=== PATIENT | male | born 1980 | race Caucasian/White ===

== ENCOUNTER → 2018-09-19 | Outpatient (CLI) | payer BC ==
--- NOTE | 2018-09-19 16:19 | Diagnostic Imaging Report ---
INDICATION: Chronic back pain progressively more severe, bilateral feet pain, garcia pain. No priors. FINDINGS: The thoracic spinal cord has a normal volume and normal morphology and a normal signal intensity. The thoracic vertebral body heights are well maintained. There is mild spondylosis with predominantly anteriorly oriented osteophyte disc material. CSF circumscribes the cord at each thoracic vertebral body and disc space levels. No significant canal stenosis and patency of the neuroforamina bilaterally is preserved throughout. There is no paravertebral mass, hemorrhage or fluid collection. Marrow signal intensity normal. The facet relationships normal. The alignment is anatomic. IMPRESSION: Mild degenerative disc bulges and endplate osteophytes are predominantly directed anteriorly. There is no resultant canal, foraminal or recess stenosis. Normal alignment. Normal cord. No acute abnormality. Dictated by: Dictated on workstation # [id number]
--- NOTE | 2018-09-19 19:26 | Diagnostic Imaging Report ---
PROCEDURE: MRI lumbar spine. TECHNIQUE: Multiplanar, multisequence MRI of the lumbar spine was performed without contrast. INDICATION: Worsening chronic back pain. COMPARISON: None. FINDINGS: Anatomic, the marrow signal intensity normal. No focal disc herniation. The lumbar spinal canal is widely patent at each vertebral body and disc space level. Neural foramen are widely patent. No lateral recess impingement. No paravertebral mass, hemorrhage or fluid collection. No intrathecal or epidural disease. IMPRESSION: Normal MRI of the lumbar spine. Dictated by: Dictated on workstation # [id number]
== END ==
LOC: RAD 10:55
PROVIDERS: ATTEND Internal Medicine
DX: M51.24 Other intervertebral disc displacement, thoracic region (principal); M25.78 Osteophyte, vertebrae
CPT/HCPCS: 72146; 72148

== ENCOUNTER 2019-02-20 11:56 | Day surgery (SDC) | payer BC, OTHER ==
[~2019-02-20] VITALS: Ht 180.3 cm; Wt 93.0 kg
[2019-02-20] MEDS ORDERED: ATORVASTATIN 40 MG TABLET (12:09)
[2019-02-20] MEDS ORDERED: ALPRAZOLAM 1 MG TABLET (12:09)
[2019-02-20] MEDS ORDERED: DEXTROAMP AMPHETAMIN (12:09)
[2019-02-20] MEDS ORDERED: ONDANSETRON 4 MG/2 ML (SDV) Z0FRAN IVP ONE (12:15)
[2019-02-20] MEDS ORDERED: fentaNYL INJECTION 100 MCG/2 ML AMP IVP ONE ×2 (12:15→13:15)
[2019-02-20] MEDS ORDERED: NS IV 1000 ML 1,000 ML IV SCH (12:15)
--- NOTE | 2019-02-20 12:35 | ED Abdominal Pain ---
General Chief Complaint: Abdominal/GI Problems Stated Complaint: LOWER ABD PAIN Nursing Triage Note: PT AMB TO RM 10 WITH COMPLAINT OF LOW AND PAIN. STATES STARTED MONDAY AND HAS WORSENED. Sepsis Screen: No Definite Risk Source of Information: Patient Exam Limitations: No Limitations History of Present Illness Date Seen by Provider: Feb 20, 2019 Time Seen by Provider: 12:00 Initial Comments 38-year-old male who presents to the emergency room with complaints of right lower quadrant abdominal pain that radiates to his periumbilical area for the past 4 days. He reports that it has progressively gotten worse and he started to run a low-grade fever. He also complains of nausea and vomiting. Denies diarrhea or constipation. Timing/Duration: 3-4 Days Severity/Quality: Sharp, Stabbing Location: RLQ Radiation: Periumbilical Activities at Onset: None Associated Symptoms: Fever/Chills, Nausea/Vomiting; No Swelling/Mass in Abdomen Allergies and Home Medications Allergies Coded Allergies: No Known Drug Allergies (Unverified , 02/20/19) Home Medications Alprazolam 1 Mg Tablet, 0.5-1 MG PO HS, (Reported) Atorvastatin Calcium 40 Mg Tablet, 40 MG PO HS, (Reported) Dextroamphetamine/Amphetamine 30 Mg Tablet, 15-30 MG PO DAILY PRN for ATTENTION, (Reported) Ibuprofen 200 Mg Tablet, 800 MG PO TID PRN for PAIN-MILD, (Reported) Tramadol HCl 50 Mg Tablet, 50 MG PO Q6H PRN for PAIN-MODERATE, (Reported) Patient Home Medication List Home Medication List Reviewed: Yes Review of Systems Review of Systems Constitutional: see HPI, chills, fever Gastrointestinal: See HPI, Abdominal Pain; Denies Constipated, Denies Diarrhea ; Nausea, Vomiting Genitourinary: No Symptoms Reported All Other Systems Reviewed Negative Unless Noted: Yes Past Xhlvfrl-Rysblf-Nmfgzs Hx Past Med/Social Hx: Reviewed Nursing Past Med/Soc Hx Patient Social History Alcohol Use: Occasionally Uses Recreational Drug Use: No Smoking Status: Never a Smoker Recent Foreign Travel: No Contact w/Someone Who Travel: No Recent Infectious Disease Expo: No Recent Hopitalizations: No Immunizations Up To Date Tetanus Booster (TDap): Unknown PED Vaccines UTD: Yes Seasonal Allergies Seasonal Allergies: No Past Medical History Surgeries: Yes Respiratory: No Cardiac: Yes High Cholesterol Neurological: No Genitourinary: No Gastrointestinal: No Musculoskeletal: No Endocrine: No HEENT: No Cancer: No Psychosocial: Yes Anxiety Integumentary: No Family Medical History Reviewed Nursing Family Hx Physical Exam Vital Signs Vital Signs - First Documented 02/20/19 12:02 Temp 99.7 Pulse 77 Resp 20 B/P (MAP) 152/103 (119) Pulse Ox 99 O2 Delivery Room Air Capillary Refill : Less Than 3 Seconds Height/Weight/BMI Height: 5'11.00" Weight: 205lbs. oz. 92.644904gr; BMI Method:Stated General Appearance: WD/WN, no apparent distress Respiratory: chest non-tender, lungs clear, normal breath sounds, no respiratory distress, no accessory muscle use Cardiovascular: normal peripheral pulses, regular rate, rhythm, no edema, no gallop, no JVD, no murmur Gastrointestinal: normal bowel sounds, soft, no organomegaly, no pulsatile mass , tenderness (right lower quadrant tenderness) Extremities: normal capillary refill Neurologic/Psychiatric: alert, normal mood/affect, oriented x 3 Skin: normal color, warm/dry Progress/Results/Core Measures Results/Orders Lab Results Laboratory Tests Test 02/20/19 12:25 Range/Units White Blood Count 14.2 H 4.3-11.0 10^3/uL Red Blood Count 5.02 4.35-5.85 10^6/uL Hemoglobin 15.5 13.3-17.7 G/DL Hematocrit 44 40-54 % Mean Corpuscular Volume 88 80-99 FL Mean Corpuscular Hemoglobin 31 25-34 PG Mean Corpuscular Hemoglobin Concent 35 32-36 G/DL Red Cell Distribution Width 12.8 10.0-14.5 % Platelet Count 213 130-400 10^3/uL Mean Platelet Volume 9.8 7.4-10.4 FL Neutrophils (%) (Auto) 82 H 42-75 % Lymphocytes (%) (Auto) 7 L 12-44 % Monocytes (%) (Auto) 11 0-12 % Eosinophils (%) (Auto) 0 0-10 % Basophils (%) (Auto) 0 0-10 % Neutrophils # (Auto) 11.6 H 1.8-7.8 X 10^3 Lymphocytes # (Auto) 0.9 L 1.0-4.0 X 10^3 Monocytes # (Auto) 1.6 H 0.0-1.0 X 10^3 Eosinophils # (Auto) 0.0 0.0-0.3 10^3/uL Basophils # (Auto) 0.0 0.0-0.1 10^3/uL Neutrophils % (Manual) 79 % Lymphocytes % (Manual) 6 % Monocytes % (Manual) 8 % Eosinophils % (Manual) 1 % Basophils % (Manual) 0 % Band Neutrophils 6 % Blood Morphology Comment NORMAL Urine Color YELLOW Urine Clarity CLEAR Urine pH 7 5-9 Urine Specific [place] 1.010 L 1.016-1.022 Urine Protein 1+ H NEGATIVE Urine Glucose (UA) NEGATIVE NEGATIVE Urine Ketones 3+ H NEGATIVE Urine Nitrite NEGATIVE NEGATIVE Urine Bilirubin NEGATIVE NEGATIVE Urine Urobilinogen NORMAL NORMAL MG/DL Urine Leukocyte Esterase NEGATIVE NEGATIVE Urine RBC (Auto) NEGATIVE NEGATIVE Urine RBC NONE /HPF Urine WBC RARE /HPF Urine Squamous Epithelial Cells 0-2 /HPF Urine Crystals NONE /LPF Urine Bacteria NEGATIVE /HPF Urine Casts NONE /LPF Urine Mucus SMALL H /LPF Urine Culture Indicated NO Sodium Level 139 135-145 MMOL/L Potassium Level 3.9 3.6-5.0 MMOL/L Chloride Level 102 98-107 MMOL/L Carbon Dioxide Level 23 21-32 MMOL/L Anion Gap 14 5-14 MMOL/L Blood Urea Nitrogen 11 7-18 MG/DL Creatinine 1.07 0.60-1.30 MG/DL Estimat Glomerular Filtration Rate > 60 BUN/Creatinine Ratio 10 Glucose Level 107 H 70-105 MG/DL Calcium Level 9.5 8.5-10.1 MG/DL Corrected Calcium 8.5-10.1 MG/DL Total Bilirubin 1.3 H 0.1-1.0 MG/DL Aspartate Amino Transf (AST/SGOT) 18 5-34 U/L Alanine Aminotransferase (ALT/SGPT) 25 0-55 U/L Alkaline Phosphatase 67 40-136 U/L Total Protein 7.6 6.4-8.2 GM/DL Albumin 4.6 H 3.2-4.5 GM/DL Amylase Level 36 25-125 U/L Lipase 5 L 8-78 U/L My Orders Orders - HUMZA HILL Cbc With Automated Diff (02/20/19 12:07) Comprehensive Metabolic Panel (02/20/19 12:07) Ct Abd/Pelv W (Appendicitis) (02/20/19 12:07) Saline Lock/Iv-Start (02/20/19 12:07) Amylase (02/20/19 12:07) Lipase (02/20/19 12:07) Ua Culture If Indicated (02/20/19 12:07) Ns Iv 1000 Ml (Sodium Chloride 0.9%) (02/20/19 12:15) Fentanyl Injection (Sublimaze Injection (02/20/19 12:15) Ondansetron Injection (Zofran Injectio (02/20/19 12:15) Manual Differential (02/20/19 12:25) Fentanyl Injection (Sublimaze Injection (02/20/19 13:15) Medications Given in ED Vital Signs/I&O 02/20/19 12:02 Temp 99.7 Pulse 77 Resp 20 B/P (MAP) 152/103 (119) Pulse Ox 99 O2 Delivery Room Air Blood Pressure Mean: 119 Progress Progress Note : Time: 12:34 Progress Note The patient's pain has improved after fentanyl administration. He is going to CT scan at this time. 1300: Radiologist discussed CT images with myself and informed me that patient is having acute appendicitis. Dr. LEWIS was paged at this time.1310: I have discussed the case with Dr. Lewis and he agrees to accept the patient to his services. Given that the last time the patient had anything to eat was 2 hours ago he recommends putting the patient on clear liquid diet until midnight, IV antibiotics (Cipro Flagyl) and operating tomorrow morning. The patient agrees with plan of care and plans for admission. Diagnostic Imaging Diagonstic Imaging: CT Plain Films/CT/US/NM/MRI: abdomen, pelvis Comments NAME: MIRIAN CHRISTENSEN [facility] REC#: [id number] PT STATUS: ADM Fang : 1980 PHYSICIAN: HUMZA HILL ADMIT DATE: 02/20/19/4TH Signed Date of Exam: 02/20/19 CT ABD/PELV W (APPENDICITIS) PROCEDURE: CT abdomen and pelvis with contrast, rule out appendicitis. TECHNIQUE: Multiple contiguous axial images were obtained through the abdomen and pelvis after the administration of intravenous contrast. INDICATION: Right lower quadrant pain, fever, and nausea. FINDINGS: Findings are consistent with acute appendicitis. The appendix is dilated and thickwalled with maximal outer bcpb-ln-prgui wall transverse diameter of 1.5 cm. There is periappendiceal edema. There are multiple intraluminal appendicoliths including a large spherical stone at the base of the appendix measuring a diameter of 1 cm. There is no extraluminal air or findings of transmural perforation and there is no abscess or resultant bowel obstruction. Unobstructed urinary tracts are normal. The liver, gallbladder, spleen, adrenals, and pancreas are all negative. There is patent left-sided processus vaginalis noted with fluid distention along the left spermatic cord. No herniated viscus. IMPRESSION: Findings of acute appendicitis without features of obstruction, perforation, or abscess. No other significant finding. Results phoned to the ER physician. Dictated by: Dictated on workstation # [id number] Dict: 02/20/19 1255 Trans: 02/20/19 1342 Interpreted by: ANIBAL HERNÁNDEZ Electronically signed by: ANIBAL HERNÁNDEZ 02/20/19 1342 Reviewed: Reviewed by Me Departure Communication (Admissions) Time/Spoke to Admitting Phy: 13:10 Dr. LEWIS Impression Primary Impression: Appendicitis Qualified Codes: K35.80 - Unspecified acute appendicitis Disposition: ADMITTED INPATIENT Condition: Stable/Unchanged Admissions Decision to Admit Reason: Admit from ER (General) Decision to Admit/Date: Feb 20, 2019 Time/Decision to Admit Time: 13:15 Departure-Patient Inst. Referrals: DEONTE CAMEJO DO (PCP/Family) Primary Care Physician HUMZA HILL Feb 20, 2019 12:35
[2019-02-20 12:37] LABS: BILIRUBIN,URINE NEGATIVE (NEGATIVE); CLARITY,URINE CLEAR; COLOR,URINE YELLOW; GLUCOSE, URINE (UA) NEGATIVE (NEGATIVE); KETONES,URINE 3+ (NEGATIVE); LEUKOCYTE ESTERASE ,URINE NEGATIVE (NEGATIVE); NITRITE,URINE NEGATIVE (NEGATIVE); PH,URINE 7 (5-9); PROTEIN,URINE 1+ (NEGATIVE); UROBILINOGEN,URINE NORMAL (NORMAL)
[2019-02-20 12:41] LABS: BASOPHILS % (AUTO) 0 % (0-10); EOSINOPHILS % (AUTO) 0 % (0-10); HEMATOCRIT 44 % (40-54); HEMOGLOBIN 15.5 G/DL (13.3-17.7); LYMPHOCYTES # (AUTO) 0.9 X 10^3 (1.0-4.0); LYMPHOCYTES % (AUTO) 7 % (12-44); MEAN CORPUSCULAR HEMOGLOBIN 31 PG (25-34); MEAN CORPUSCULAR HGB CONC 35 G/DL (32-36); MEAN CORPUSCULAR VOLUME 88 FL (80-99); MEAN PLATELET VOLUME 9.8 FL (7.4-10.4); MONOCYTES # (AUTO) 1.6 X 10^3 (0.0-1.0); MONOCYTES % (AUTO) 11 % (0-12); NEUTROPHILS # (AUTO) 11.6 X 10^3 (1.8-7.8); NEUTROPHILS % (AUTO) 82 % (42-75); PLATELET COUNT 213 10^3/uL (130-400); RED CELL DISTRIBUTION WIDTH 12.8 % (10.0-14.5); WHITE BLOOD COUNT 14.2 10^3/uL (4.3-11.0)
[2019-02-20 12:57] LABS: BACTERIA,URINE NEGATIVE /HPF; SQUAMOUS EPITHELIAL CELL,UR 0-2 /HPF; WBC,URINE RARE /HPF
[2019-02-20 13:00] LABS: ALANINE AMINOTRANSFERASE 25 U/L (0-55); ALBUMIN 4.6 GM/DL (3.2-4.5); ALKALINE PHOSPHATASE 67 U/L (40-136); AMYLASE 36 U/L (25-125); BILIRUBIN,TOTAL 1.3 MG/DL (0.1-1.0); BUN/CREATININE RATIO 10; CALCIUM 9.5 MG/DL (8.5-10.1); CARBON DIOXIDE 23 MMOL/L (21-32); CHLORIDE 102 MMOL/L (98-107); CREATININE SERUM 1.07 MG/DL (0.60-1.30); GFR ESTIMATED > 60; GLUCOSE 107 MG/DL (70-105); LIPASE 5 U/L (8-78); POTASSIUM 3.9 MMOL/L (3.6-5.0); SODIUM 139 MMOL/L (135-145); TOTAL PROTEIN 7.6 GM/DL (6.4-8.2)
--- NOTE | 2019-02-20 13:05 | Diagnostic Imaging Report ---
PROCEDURE: CT abdomen and pelvis with contrast, rule out appendicitis. TECHNIQUE: Multiple contiguous axial images were obtained through the abdomen and pelvis after the administration of intravenous contrast. INDICATION: Right lower quadrant pain, fever, and nausea. FINDINGS: Findings are consistent with acute appendicitis. The appendix is dilated and thickwalled with maximal outer yljk-fa-gtcvm wall transverse diameter of 1.5 cm. There is periappendiceal edema. There are multiple intraluminal appendicoliths including a large spherical stone at the base of the appendix measuring a diameter of 1 cm. There is no extraluminal air or findings of transmural perforation and there is no abscess or resultant bowel obstruction. Unobstructed urinary tracts are normal. The liver, gallbladder, spleen, adrenals, and pancreas are all negative. There is patent left-sided processus vaginalis noted with fluid distention along the left spermatic cord. No herniated viscus. IMPRESSION: Findings of acute appendicitis without features of obstruction, perforation, or abscess. No other significant finding. Results phoned to the ER physician. Dictated by: Dictated on workstation # [id number]
[2019-02-20 13:13] LABS: NEUTROPHILS % (MANUAL) 79 %
[2019-02-20 13:14] LABS: BAND NEUTROPHILS 6 %; BASOPHILS % (MANUAL) 0 %; EOSINOPHILS % (MANUAL) 1 %; LYMPHOCYTES % (MANUAL) 6 %; MONOCYTES % (MANUAL) 8 %; RBC MORPH NORMAL
--- NOTE | 2019-02-20 14:00 | NUR ---
MIRIAN CHRISTENSEN admitted to room 417-1, with an admitting diagnosis of Appendicitis, on 02/20/[address] via cart, accompanied by staff, mom and sister.MIRIAN CHRISTENSEN introduced to surroundings, call light, bed controls, phone, TV, temperature control, lights, meal times, smoking policy, visitor policy, side rail policy, bathrooms and showers. Patient Rights given to patient in the handbook. MIRIAN CHRISTENSEN verbalizes understanding that [facility] is not responsible for the loss or damage to any personal effects or valuables that are kept in the patients posession during their hospitalization. The following Patient Care Plans were discussed with the pt: Discharge Planning. MIRIAN CHRISTENSEN verbalizes understanding of Interdisciplinary Patient Education. Patient and/or family were informed about the Rapid Response Team and its purpose.
[2019-02-20 14:08] VITALS: BP 160/80
[2019-02-20] MEDS ORDERED: ATOR40TA70 PO (14:26)
[2019-02-20] MEDS ORDERED: DEXT30TA12 PO (14:26)
[2019-02-20] MEDS ORDERED: ALPR1TAB7 PO (14:26)
[2019-02-20] MEDS ORDERED: TRAM50TA2 PO (14:28)
[2019-02-20] MEDS ORDERED: IBUP-30 PO (14:28)
[2019-02-20] MEDS ORDERED: HYDROcodone/APAP 5 MG/325 MG (LORTAB) TAB PO PRN (14:30)
[2019-02-20] MEDS ORDERED: CATHETER FLUSH 10 ML SYR IV PRN (14:30)
[2019-02-20] MEDS ORDERED: fentaNYL INJECTION 100 MCG/2 ML AMP IV PRN (14:30)
[2019-02-20] MEDS: CIPROFLOXACIN 400 MG/D5W 200 ML (PRE-MIX) IV SCH (14:55)
[2019-02-20] MEDS: metroNIDAZOLE 500MG/100ML IVPB 100 ML IV SCH ×2 (14:55→22:02)
--- NOTE | 2019-02-20 15:46 | Progress Note-Pre Operative ---
Pre-Operative Progress Note H&P Reviewed The H&P was reviewed, patient examined and no changes noted. Date Seen by Provider: Feb 20, 2019 Time Seen by Provider: 15:30 Date H&P Reviewed: Feb 20, 2019 Time H&P Reviewed: 15:30 Pre-Operative Diagnosis: acute appendicitis MAGUI LUGO MD Feb 20, 2019 15:46
[2019-02-20] MEDS ORDERED: FLU QUADRIvalent (5+ YOA) 2018-2019 (AFLURIA) 0.5 ML IM ONE (16:00)
--- NOTE | 2019-02-20 16:08 | HISTORY AND PHYSICAL ---
DATE OF SERVICE: 02/20/2019 ATTENDING PRIMARY CARE PHYSICIAN: Dr. Moreno. HISTORY OF PRESENT ILLNESS: The patient is a 38-year-old male who presented to the Emergency Department with pain in the right lower abdominal quadrant, which first started 4 days previous, more in the periumbilical region. He states that this progressively worsened and then did localize towards the right lower abdominal quadrant. He states that today he did develop a low grade fever. He also complains of nausea as well. He does not report any diarrhea nor constipation. He states that he has not had these symptoms before in the past. A CT scan was performed which did show dilatation with periappendiceal inflammation consistent with an acute appendicitis. PAST MEDICAL HISTORY: Hypercholesterolemia, anxiety. PAST SURGICAL HISTORY: None. ALLERGIES: No known drug allergies. MEDICATIONS: 1. Alprazolam 1 mg daily. 2. Atorvastatin 40 mg daily. 3. Adderall 30 mg p.r.n. 4. Tramadol 50 mg p.r.n. SOCIAL HISTORY: Negative smoke, social alcohol. FAMILY HISTORY: Noncontributory. REVIEW OF SYSTEMS: Well-nourished male, currently in no acute distress. He is not experiencing any shortness of breath or difficulty breathing. No chest pain, palpitations, diaphoresis. Intermittent episodes of nausea with pain in the right lower abdominal quadrant, which were started in the periumbilical region; however, localized more towards the right lower abdominal quadrant in the past day. No diarrhea or constipation. No red blood per rectum. No dark tarry stools. He states that he did have a mild fever this morning. No current recent inadvertent weight loss. All other review of systems is negative. PHYSICAL EXAMINATION: VITAL SIGNS: Temperature 99.7, pulse 77, respirations 20, blood pressure 152/103, pulse 99% on room air. CHEST: Clear. Good breath sounds bilaterally. HEART: Regular, no murmurs. HEENT: No scleral icterus. NECK: No cervical lymphadenopathy. EXTREMITIES: No lower extremity edema. Negative Homans sign. ABDOMEN: Soft, nondistended. There is pain in the right lower abdominal quadrant at McBurney's point. Voluntary guarding, no rebound. SKIN: Warm, dry. ASSESSMENT AND PLAN: A 38-year-old male with acute appendicitis. We will admit him, hydrate him, start IV antibiotics and proceed with a diagnostic laparoscopy as well as a laparoscopic appendectomy on this admission. Job ID: [id number] DocumentID: [id number] Dictated Date: 02/20/2019 15:46:01 Solid Surface Fabricator Date: 02/20/2019 16:07:54 Dictated By: MAGUI LUGO MD
[2019-02-20] MEDS ORDERED: LORazepam INJ 2 MG/ML (ATIVAN) VIAL IVP PRN (16:15)
[2019-02-20] MEDS ORDERED: PROMETHAZINE INJ 25 MG/ML (PHENERGAN) AMP IVP PRN (16:15)
[2019-02-20] MEDS ORDERED: ACETAMINOPHEN 500 MG TAB (TYLENOL) PO PRN (16:15)
[2019-02-20 16:29] VITALS: BP 137/80
[2019-02-20] MEDS ORDERED: ACETAMINOPHEN 325 MG TABLET PO PRN (16:30)
[2019-02-20] MEDS: IBUPROFEN 600 MG (MOTRIN) TAB PO PRN ×2 (16:52→22:58)
[2019-02-20] MEDS: HYDROcodone/APAP 7.5 MG/325 MG (LORTAB, LORCET PLUS) TABLET PO PRN ×2 (16:53→22:04)
[2019-02-20] MEDS: fentaNYL INJECTION 100 MCG/2 ML AMP IV PRN (16:54)
[2019-02-20] MEDS: LACTATED RINGERS 1,000 ML IV SCH (16:54)
[2019-02-20 19:29] VITALS: BP 109/64
[2019-02-20] MEDS: ONDANSETRON 4 MG/2 ML (SDV) Z0FRAN IV PRN (19:54)
[2019-02-20] MEDS: CATHETER FLUSH 10 ML SYR IV SCH (22:02)
[2019-02-21] VITALS: BP 114/79
[2019-02-21] MEDS: LACTATED RINGERS 1,000 ML IV SCH ×4 (02:56→22:18)
[2019-02-21] MEDS: CIPROFLOXACIN 400 MG/D5W 200 ML (PRE-MIX) IV SCH ×2 (02:56→14:09)
[2019-02-21 04:00] VITALS: BP 120/78
[2019-02-21] MEDS: fentaNYL INJECTION 100 MCG/2 ML AMP IV PRN ×2 (04:41→06:47)
[2019-02-21] MEDS: metroNIDAZOLE 500MG/100ML IVPB 100 ML IV SCH ×3 (05:48→22:15)
[2019-02-21] MEDS ORDERED: LACTATED RINGERS 1,000 ML IV PRN (06:00)
[2019-02-21 06:19] LABS: BASOPHILS % (AUTO) 0 % (0-10); EOSINOPHILS # (AUTO) 0.1 10^3/uL (0.0-0.3); EOSINOPHILS % (AUTO) 1 % (0-10); HEMATOCRIT 42 % (40-54); HEMOGLOBIN 14.5 G/DL (13.3-17.7); LYMPHOCYTES # (AUTO) 0.2 X 10^3 (1.0-4.0); LYMPHOCYTES % (AUTO) 2 % (12-44); MEAN CORPUSCULAR HEMOGLOBIN 30 PG (25-34); MEAN CORPUSCULAR HGB CONC 34 G/DL (32-36); MEAN CORPUSCULAR VOLUME 89 FL (80-99); MEAN PLATELET VOLUME 9.8 FL (7.4-10.4); MONOCYTES # (AUTO) 0.5 X 10^3 (0.0-1.0); MONOCYTES % (AUTO) 4 % (0-12); NEUTROPHILS # (AUTO) 10.1 X 10^3 (1.8-7.8); NEUTROPHILS % (AUTO) 93 % (42-75); PLATELET COUNT 165 10^3/uL (130-400); RED CELL DISTRIBUTION WIDTH 13.1 % (10.0-14.5); WHITE BLOOD COUNT 10.9 10^3/uL (4.3-11.0)
[2019-02-21 06:40] LABS: ALANINE AMINOTRANSFERASE 21 U/L (0-55); ALKALINE PHOSPHATASE 62 U/L (40-136); BILIRUBIN,TOTAL 1.6 MG/DL (0.1-1.0); BUN/CREATININE RATIO 9; CALCIUM 9.4 MG/DL (8.5-10.1); CARBON DIOXIDE 26 MMOL/L (21-32); CHLORIDE 105 MMOL/L (98-107); CREATININE SERUM 1.06 MG/DL (0.60-1.30); GFR ESTIMATED > 60; GLUCOSE 89 MG/DL (70-105); POTASSIUM 3.7 MMOL/L (3.6-5.0); SODIUM 139 MMOL/L (135-145); TOTAL PROTEIN 6.9 GM/DL (6.4-8.2)
--- NOTE | 2019-02-21 06:45 | NUR ---
INFORMED DR. LUGO THAT PATIENT WAS RUNNING 99.8 TEMP AND SHAKING AND UNCOMFORTABLE. RECEIVED ORDER TO GIVE MOTRIN PO. WILL CONTINUE TO MONITOR.
[2019-02-21] MEDS: IBUPROFEN 600 MG (MOTRIN) TAB PO PRN ×3 (06:48→19:51)
[2019-02-21] MEDS: ONDANSETRON 4 MG/2 ML (SDV) Z0FRAN IV PRN (06:48)
[2019-02-21] MEDS: CATHETER FLUSH 10 ML SYR IV SCH ×3 (06:48→22:16)
[2019-02-21] MEDS ORDERED: ONDANSETRON 4 MG/2 ML (SDV) Z0FRAN ONE (08:21)
[2019-02-21] MEDS ORDERED: GLYCOPYRROLATE 0.2 MG/ML (ROBINUL) 2 ML VIAL ONE ×3 (08:21→09:47)
[2019-02-21] MEDS ORDERED: NEOSTIGMINE 1 MG/ML 5 ML SYRINGE ONE ×3 (08:21→09:47)
[2019-02-21] MEDS ORDERED: LIDOCAINE PF 2% 5 ML (XYLOCAINE) VIAL ONE (08:21)
[2019-02-21] MEDS ORDERED: proPOfol 200 MG/20 ML (DIPRIVAN) VIAL IV ONE ×2 (08:21→09:05)
[2019-02-21] MEDS ORDERED: DEXAMETHASONE 10 MG/ML (DECADRON) 1 ML VIAL ONE (08:21)
[2019-02-21] MEDS ORDERED: SEVOFLURANE (ULTANE) 15 ML INHAL SOLN ONE ×5 (08:21→10:13)
[2019-02-21] MEDS ORDERED: ROCURONIUM 10 MG/ML 5 ML SYRINGE IV ONE (08:21)
[2019-02-21] MEDS ORDERED: MIDAZOLAM 2 MG/2 ML (VERSED) VIAL ONE (08:26)
[2019-02-21] MEDS ORDERED: fentaNYL INJECTION 100 MCG/2 ML AMP ONE ×2 (08:26→09:39)
[2019-02-21] MEDS ORDERED: FAMOTIDINE 20MG/2ML IV (PEPCID) ONE (08:36)
[2019-02-21] MEDS ORDERED: ceFAZolin INJECTION 1,000 MG ONE (08:43)
[2019-02-21] MEDS ORDERED: ceFAZolin INJECTION 1,000 MG in WATER (STERILE) FOR INJECTION 10 ML IV ONE (09:00)
[2019-02-21] MEDS ORDERED: HYDR-34 PO (09:04)
[2019-02-21] MEDS ORDERED: CIPR500T21 PO (09:04)
[2019-02-21] MEDS ORDERED: METR500T PO (09:04)
[2019-02-21] MEDS ORDERED: LACTATED RINGERS 1,000 ML IV ONE (09:05)
--- NOTE | 2019-02-21 09:06 | Discharge Inst-Surgical ---
D/C Lap Instructions-PARISH New, Converted, or Re-Newed RX: RX on Chart Follow Up Appt in 2 weeks Activity as tolerated No driving for 24 hours No driving while on pain medications Incentive Spirometry use every 2 hours while awake Regular Diet Symptoms to Report: Fever over 101 degree F, Nausea/Vomiting Infection Signs and Symptoms to report: Increased redness, Foul odor of wound, Increased drainage Bathing instructions: May shower Operative Area Clean/Dry; Keep incision clean/dry If any problems/questions: Contact your physician or go to Emergency Room MAGUI LUGO MD Feb 21, 2019 09:06
[2019-02-21] MEDS ORDERED: BUP/EPI 0.5% 1:200,000 (SENSORCAINE) 30 ML VIAL ONE (09:08)
[2019-02-21] MEDS ORDERED: diphenhydrAMINE 50 MG/ML INJ (BENADRYL) ONE ×2 (09:47→10:12)
--- NOTE | 2019-02-21 10:09 | Progress Note-Post Operative ---
Post-Operative Progess Note Surgeon (s)/Mix Maker (s) Surgeon MAGUI LUGO MD Mix Maker: judson andrews FLOATING DERRICK OPERATOR Pre-Operative Diagnosis acute appendicitis Post-Operative Diagnosis same Procedure & Operative Findings Date of Procedure 02/21/19 Procedure Performed/Findings laparoscopic appendectomy Anesthesia Type GET Estimated Blood Loss Estimated blood loss (mL): minimal Specimens/Packing Specimens Removed appendix MAGUI LUGO MD Feb 21, 2019 10:09
[2019-02-21] MEDS ORDERED: HYDROmorphone 2 MG/ML VIAL (DILAUDID) IV ONE (10:30)
[2019-02-21] MEDS ORDERED: morphine INJ 10 MG/ML 1ML (SYR OR VIAL) IVP ONE (10:30)
[2019-02-21] MEDS ORDERED: ONDANSETRON 4 MG/2 ML (SDV) Z0FRAN IVP PRN (10:30)
[2019-02-21] MEDS ORDERED: PROMETHAZINE INJ 25 MG/ML (PHENERGAN) AMP IVP ONE (10:30)
[2019-02-21 11:45] VITALS: BP 120/78
[2019-02-21] MEDS: HYDROcodone/APAP 7.5 MG/325 MG (LORTAB, LORCET PLUS) TABLET PO PRN ×3 (14:10→22:16)
--- NOTE | 2019-02-21 14:38 | Anesthesia-General Post-Op ---
General Patient Condition Mental Status/LOC: Same as Preop Cardiovascular: Satisfactory Nausea/Vomiting: Absent Respiratory: Satisfactory Pain: Controlled Complications: Absent Post Op Complications Complications None Follow Up Care/Instructions Patient Instructions None needed. Anesthesia/Patient Condition Patient Condition Patient was seen after the procedure and he was doing well, no complaints, stable vital signs, no apparent adverse anesthesia problems. SAM MULLEN DO Feb 21, 2019 14:38
[2019-02-21 16:25] VITALS: BP 138/83
--- NOTE | 2019-02-21 16:50 | OPERATIVE REPORT ---
DATE OF SERVICE: 02/21/2019 ATTENDING PRIMARY CARE PHYSICIAN: Dr. Moreno. PREOPERATIVE DIAGNOSIS: Acute appendicitis. POSTOPERATIVE DIAGNOSIS: Acute appendicitis. PROCEDURE: Laparoscopic appendectomy. SURGEON: Magui Lugo MD BRINE TANK TENDER: Fredi Hilliard APRN. ANESTHESIA: General endotracheal. ESTIMATED BLOOD LOSS: Minimal. FINDINGS: Inflamed and necrotic appendix; however, no keri perforation. DISPOSITION: The patient tolerated the procedure well. INDICATIONS: The patient is a 38-year-old male who presented with a 4-day history of pain, which started in the periumbilical region; however, began to localize in the right lower abdominal quadrant. The reason why he came into the hospital was along with the pain. He did develop fever and chills. He had a CT scan performed which did show inflammation as well as edema of the appendix consistent with an acute appendicitis. He also did have elevation of white count. He was admitted, started on IV fluids and IV antibiotics as well as pain control. DESCRIPTION OF PROCEDURE: The patient was brought to the operating room, laid supine on the table. After adequate IV pain and sedative medications and general endotracheal intubation, the abdomen was prepped and draped in standard surgical fashion. A 0.5% Marcaine with epinephrine was used to anesthetize the overlying skin in the left upper abdominal quadrant and a transverse skin incision made using a 15 blade. An 0 silk suture was applied to the medial aspect of the incision for retraction and a Veress needle inserted with low opening pressure of 0 mmHg. The abdomen insufflated to 15 mmHg pressure. Veress needle removed and a 5 mm Xcel trocar placed followed by a 5 mm 45-degree angle laparoscope visualizing the peritoneal cavity. A 4-quadrant abdominal exploration was performed. There was an inflamed as well as a necrotic appendix; however, this was contained within the small bowel mesentery as well as the lateral abdominal wall and no keri perforation. We then proceeded to place a supraumbilical 10 mm port after the skin and peritoneal lining were anesthetized using 0.5% Marcaine with epinephrine and a transverse skin incision made using a 15 blade. In a similar manner, suprapubic 5 mm port was placed. The patient was then placed in Trendelenburg position as well as plane right side up, left side down. The appendix was then gently dissected out intact and the mesoappendix opened using electrocautery on the hook instrument with visualization of good hemostasis. The cecal base appeared clear of any inflammation. We proceeded with staple and transection of the appendix at the cecal base using a BI white load stapler. Good hemostasis was observed. The appendix was removed through the 10 mm port site using an EndoCatch bag. The peritoneal cavity was then copiously irrigated with 2 liters of sterile irrigation and suctioned out. The 10 mm port site fascia and peritoneum were then closed under direct visualization using a Dilshad-Valeria device and an 0 Vicryl suture. The abdomen was desufflated and remaining ports removed. All skin incisions were closed using 4-0 Monocryl running subcuticular sutures. Wounds were then cleaned and covered with Dermabond. The patient tolerated the procedure well. We will admit him back to the floor. Continue with IV antibiotics overnight as well as pain control and diet as tolerated. If he is afebrile, well, tolerating liquids and ambulating with adequate pain control, we will discharge him home. Job ID: [id number] DocumentID: [id number] Dictated Date: 02/21/2019 10:17:35 Kennel Manager Dog Track Date: 02/21/2019 16:49:32 Dictated By: MAGUI LUGO MD
[2019-02-21 19:24] VITALS: BP 144/78
[2019-02-21] MEDS: DOCUSATE SODIUM 100 MG (COLACE) CAP PO SCH (19:51)
[2019-02-22] VITALS: BP 118/72
[2019-02-22] MEDS: HYDROcodone/APAP 7.5 MG/325 MG (LORTAB, LORCET PLUS) TABLET PO PRN ×3 (03:23→09:25)
[2019-02-22] MEDS: CIPROFLOXACIN 400 MG/D5W 200 ML (PRE-MIX) IV SCH (03:23)
[2019-02-22 04:00] VITALS: BP 120/81
[2019-02-22] MEDS: LACTATED RINGERS 1,000 ML IV SCH ×2 (04:52→11:23)
[2019-02-22] MEDS: CATHETER FLUSH 10 ML SYR IV SCH (05:09)
[2019-02-22] MEDS: metroNIDAZOLE 500MG/100ML IVPB 100 ML IV SCH (05:09)
[2019-02-22 06:19] LABS: MEAN PLATELET VOLUME 10.3 FL (7.4-10.4); WHITE BLOOD COUNT 8.9 10^3/uL (4.3-11.0)
[2019-02-22 08:00] VITALS: BP 138/93
[2019-02-22] MEDS: DOCUSATE SODIUM 100 MG (COLACE) CAP PO SCH (08:14)
--- NOTE | 2019-02-22 10:09 | Anesthesia-General Post-Op ---
General Patient Condition Mental Status/LOC: Same as Preop Cardiovascular: Satisfactory Nausea/Vomiting: Absent Respiratory: Satisfactory Pain: Controlled Complications: Absent Post Op Complications Complications None Follow Up Care/Instructions Patient Instructions None needed. Anesthesia/Patient Condition Patient Condition Patient is doing well, no complaints, stable vital signs, no apparent adverse anesthesia problems. No complications reported per nursing. SHADIA CARDOSO CRNA Feb 22, 2019 10:09
--- NOTE | 2019-02-22 11:52 | Progress Note (SOAP) ---
Subjective Date Seen by a Provider: Feb 22, 2019 Time Seen by a Provider: 11:00 Subjective/Events-last exam doing well. tolerating diet. pain controlled. no fever/chills. Objective Exam Vital Signs Date Time Temp Pulse Resp B/P (MAP) Pulse Ox O2 Delivery O2 Flow Rate FiO2 02/22/19 08:00 96.2 86 18 138/93 (108) 96 Room Air 02/22/19 04:00 97.1 81 16 120/81 (94) 95 Room Air 02/22/19 00:00 97.2 88 18 118/72 (87) 97 Room Air 02/21/19 20:00 98 Room Air 02/21/19 19:24 99.2 98 20 144/78 (100) 98 Room Air 02/21/19 16:25 99.5 112 18 138/83 (101) 96 Room Air I & O 02/22/19 07:00 Intake Total 4450 ml Output Total 100 ml Balance 4350 ml Capillary Refill : Less Than 3 Seconds General Appearance: No Apparent Distress HEENT: PERRL/EOMI Neck: Full Range of Motion Respiratory: Chest Non Tender, Lungs Clear, Normal Breath Sounds Cardiovascular: Regular Rate, Rhythm Gastrointestinal: normal bowel sounds, soft Extremity: Normal Capillary Refill Neurologic/Psychiatric: Alert, Oriented x3 Skin: Normal Color Lymphatic: No Adenopathy Results Lab Laboratory Tests 02/22/19 05:55: White Blood Count 8.9, Red Blood Count 4.23L, Hemoglobin 13.0L, Hematocrit 38L, Mean Corpuscular Volume 89, Mean Corpuscular Hemoglobin 31, Mean Corpuscular Hemoglobin Concent 35, Red Cell Distribution Width 13.0, Platelet Count 131, Mean Platelet Volume 10.3 Microbiology 02/21/19 MRSA Screen - Final, Complete MRSA not isolated Assessment/Plan Assessment/Plan Assess & Plan/Chief Complaint s/p lap appy. doing well. tolerating diet and no fevers. d/c home. f/u 2 weeks. Clinical Quality Measures DVT/VTE Risk/Contraindication: RFS Level Per Nursing on Admit: 1=Low/No VTE PPX MAGUI LUGO MD Feb 22, 2019 11:52
[2019-02-22 14:02] VITALS: BP 138/93
== END 2019-02-22 14:08 | disposition home or self-care (01) ==
LOC: ER 11:56 → 4TH 13:28 → SDC 13:28 → UNDOADMOB 13:28 → SDC 02-22 14:08 → UNDODISOB 02-22 14:08
PROVIDERS: ATTEND Surgery
DX: K35.80 Unspecified acute appendicitis (principal); E78.00 Pure hypercholesterolemia, unspecified; F41.9 Anxiety disorder, unspecified; E78.5 Hyperlipidemia, unspecified; K21.9 Gastro-esophageal reflux disease without esophagitis; Z79.899 Other long term (current) drug therapy
CPT/HCPCS: 36415; 74177; 80053; 81000; 82150; 83690; 85007; 85025; 85027; 87081; 88304; 90471; 96361; 96374; 96375; 96376

== ENCOUNTER → 2023-02-10 | Outpatient (CLI) | payer OTHER ==
[~2023-02-10] MED LIST: ALPR1TAB7 PO; ALPRAZOLAM 1 MG TABLET; ATOR40TA70 PO; ATORVASTATIN 40 MG TABLET; CIPR500T21 PO; DEXT30TA12 PO; DEXTROAMP AMPHETAMIN; HYDR-34 PO; IBUP-30 PO; METR500T PO; TRM50T PO
--- NOTE | 2023-02-10 11:40 | Diagnostic Imaging Report ---
PROCEDURE: US Gallbladder. TECHNIQUE: Multiple real-time grayscale images were obtained over the right upper quadrant in various projections. INDICATION: Epigastric abdominal pain. COMPARISON: CT from 02/20/2019. FINDINGS: Imaged portions of the pancreas appear normal, although the tail is obscured by bowel gas. Imaged portions of the aorta and IVC are unremarkable. The liver is mildly prominent in size measuring 18.4 cm in length. No focal liver lesions are seen. There is no intrahepatic biliary dilatation. The gallbladder wall is not thickened. The main portal vein is hepatopetal. The common bile duct measures 5 mm, which is normal. No gallstones are seen. Sonographic Ko's sign is negative. The right kidney measures 11 cm in length. There is no hydronephrosis or free fluid. IMPRESSION: 1. Mild hepatomegaly with no other acute abnormalities seen in the liver or gallbladder. Dictated by: Dictated on workstation # [id number]
== END ==
LOC: RAD 08:55
PROVIDERS: ATTEND Internal Medicine
DX: R16.0 Hepatomegaly, not elsewhere classified (principal); R10.13 Epigastric pain
CPT/HCPCS: 76705

== ENCOUNTER → 2023-03-13 | Outpatient (CLI) | payer OTHER ==
[~2023-03-13] MED LIST changes: +CATHETER FLUSH 10 ML SYR IVP PRN
--- NOTE | 2023-03-13 13:56 | Diagnostic Imaging Report ---
Indication: Abdominal pain and epigastric pain. Patient was administered 5.1 mCi technetium 99 Choletec intravenously and imaging over the abdomen was performed. At 60 minutes patient ingested ensure and the gallbladder ejection fraction was calculated. There is homogeneous uptake of activity by the liver with prompt excretion of activity into the common duct and gallbladder. There is normal passage of activity into the small bowel. Minimal activity is seen within the stomach. Gallbladder ejection fraction is slightly low at 25%. Normal values are 35% or greater. IMPRESSION: 1. Patent cystic duct and common bile duct. There is mild gastric bile reflux. 2. Low gallbladder ejection fraction of 25%. Dictated by: Dictated on workstation # [id number]
== END ==
LOC: CARD 10:00
PROVIDERS: ATTEND Internal Medicine
DX: K21.9 Gastro-esophageal reflux disease without esophagitis (principal); J30.89 Other allergic rhinitis; F90.0 Attention-deficit hyperactivity disorder, predominantly inattentive type; I10 Essential (primary) hypertension; E78.1 Pure hyperglyceridemia
CPT/HCPCS: 78227; A9537